=== PATIENT | female | born 1980 | race Caucasian/White ===

== ENCOUNTER → 2021-08-14 16:37 | Outpatient (BNVA) | payer MEDICAID, SELFPAY | PROVIDERS: Visit Provider Registered Nurse Neonatal Intensive Care | DX: J02.9 Acute pharyngitis, unspecified (principal) | CPT/HCPCS: 87880 ==

== ENCOUNTER 2021-12-29 05:45 | Emergency (ER) | payer MEDICAID, SELFPAY ==
[2021-12-29 05:54] VITALS: BP 163/102; PULSE 86; RESP 18; TEMP 36.8; O2SAT 86; O2SAT 96; BMI 21.9
--- NOTE | 2021-12-29 05:55 | ED_ITS ---
HPI - Dental/Oral General: Chief complaint: Dental/Oral Stated complaint: Tooth pain Time Seen by Provider: 12/29/21 05:52 Source: patient Mode of arrival: ambulatory Limitations: no limitations History of Present Illness: 41-year-old female presents emergency room complaining of chest pain for the last 5 days refers the pain to the right mandible. Patient has extremely poor dentition. She had seen a dentist previously and discussed that but did not have any work done. She is now having swelling along the gumline and a sensation of swelling in the jaw no fever. Additionally she is complaining of some mild dysuria and right flank pain that just began over the last day or 2 she related to taking large amounts of ibuprofen. No vomiting or diarrhea. MD Complaint: tooth pain Teeth map: 1. Onset (ago): day(s) (5) Severity: mild Relieving factors: nothing Exacerbating factors: nothing Context: history of dental caries Associated symptoms: Reports ear or mastoid pain and gum swelling; Denies fever(s), odynophagia, sore throat or tongue swelling Treatment prior to arrival: none Review of Systems Const: Denies: fever(s), chills or body aches ENMT: Reports: mouth pain, dental pain and ear or mastoid pain; Denies: throat pain, uvular edema, odynophagia, hoarseness, swelling of lips/tongue or oral sores Card: Denies: chest pain, edema, dyspnea on exertion or orthopnea Resp: Denies: dyspnea, productive cough or non-productive cough GI: Denies: abdominal pain, nausea, vomiting, hematemesis, coffee ground emesis, diarrhea, constipation, bloating, hematochezia or melena : Reports: flank pain, difficulty voiding and dysuria; Denies: urinary frequency or urinary urgency Musc: Denies: neck pain Skin/Breast: Denies: rash or pruritus Neuro: Denies: headache(s) All/Imm: Denies: tongue swelling PFSH ED PFSH: Medical History (Updated 12/29/21 @ 07:48 by Jhonathan Purcell DO) No significant past medical history Surgical History (Updated 12/29/21 @ 06:04 by Jhonathan Purcell DO) No significant past surgical history Social History (Updated 08/14/21 @ 16:35 by Myron Vest, INTERNAL REVENUE AGENT) Smoking and tobacco status: never smoked Alcohol intake: never Physical Exam Const: COMMON NORMALS: no acute distress GENERAL APPEARANCE: cooperative and comfortable ORIENTATION/CONSCIOUSNESS: Yes awake, Yes oriented to person, Yes oriented to place and Yes oriented to time HENMT: COMMON NORMALS: normocephalic, atraumatic, hearing grossly normal bilaterally, external ears normal, EAC's normal, TM's normal bilaterally, Normal nasal mucous membranes and turbinates present and moist oral mucous membranes HEAD & SCALP: normocephalic and atraumatic NOSE: Normal nasal mucous membr anes and turbinates present EXTERNAL EAR: Yes external ears normal EXTERNAL AUDITORY CANAL: EAC's normal TYMPANIC MEMBRANE: TM's normal bilaterally THROAT: no uvular edema OTHER: Extremely poor dentition with multiple eroded molars to the gumline. The second molar on the right mandible is eroded and inflamed there is scant drainage from the molar as well. Neck/C-Spine: COMMON NORMALS: full ROM, no lymphadenopathy, supple and no JVD Lymph: LYMPHATIC: no lymphadenopathy noted and no lymphedema noted Resp: COMMON NORMALS: normal respiratory effort, No retractions, No use of a ccessory muscles and clear to auscultation bilaterally AUSCULTATION: clear to auscultation bilaterally Cardio: COMMON NORMALS: no JVD, regular rate, regular rhythm and No murmurs present (Cardio) RATE: regular rate RHYTHM: regular rhythm GI: COMMON NORMALS: Soft to palpation and No hepatosplenomegaly present AUSCULTATION: Yes normoactive bowel sounds PALPATION: Yes Soft to palpation, No Tenderness to palpation present (GI), No Guarding due to palpation present (GI) and Yes No hepatosplenomegaly present Extremity: COMMON NORMALS: normal to inspection, capillary refill normal, no clubbing, cyanosis or edema, no calf tenderness and no pedal edema Neuro: SENSORIUM/ORIENTATION: Yes oriented to person, Yes oriented to place and Yes oriented to time Skin: COMMON NORMALS: no rashes or lesions noted GENERAL SKIN EXAM: no rashes or lesions noted Course Vital Signs: Vital signs: Vital Signs Temperature 98.3 F 12/29/21 05:54 Pulse Rate 87 12/29/21 07:56 Respiratory Rate 16 12/29/21 07:56 Blood Pressure 137/98 12/29/21 07:56 Pulse Oximetry 98 12/29/21 07:56 MDM - Dental/Oral Medical Decision Making UA negative. Given her description of the back pain it sounds more musculoskeletal. Worsened by movement. She is not having difficulty speech or swallowing at this time is no swelling in the submandibular space we will go and discharge her home on Augmentin and encouraged to follow-up with dentist. Medical Records I reviewed the patient's medical records. Lab Data I reviewed the patient's lab results. : 12/29/21 06:15 12/29/21 06:15 Laboratory Results WBC 8.7 10^3/uL (4.0-10.0) 12/29/21 06:15 RBC 4.11 10^6/uL (4.1-5.3) 12/29/21 06:15 Hgb 12.0 g/dL (11.5-15.3) 12/29/21 06:15 Hct 36.9 % (37.0-47.0) L 12/29/21 06:15 MCV 89.8 fl (81-99) 12/29/21 06:15 MCH 29.2 pg (28.0-34.0) 12/29/21 06:15 MCHC 32.5 g/dL (30.0-36.0) 12/29/21 06:15 RDW 12.6 % (12.1-15.1) 12/29/21 06:15 Plt Count 331 10^3/cmm (130-400) 12/29/21 06:15 MPV 9.2 fL (7.4-10.4) 12/29/21 06:15 Neut % (Auto) 61.4 % 12/29/21 06:15 Lymph % (Auto) 26.5 % 12/29/21 06:15 Snyder % (Auto) 8.5 % 12/29/21 06:15 Eos % (Auto) 2.6 % 12/29/21 06:15 Baso % (Auto) 0.7 % 12/29/21 06:15 Neut # (Auto) 5.32 10^3/uL (1.8-7.7) 12/29/21 06:15 Lymph # (Auto) 2.3 10^3/uL (0.8-4.8) 12/29/21 06:15 Snyder # (Auto) 0.7 10^3/uL (0.2-0.9) 12/29/21 06:15 Eos # (Auto) 0.2 10^3/uL (0.0-0.8) 12/29/21 06:15 Baso # (Auto) 0.1 10^3/uL (0.0-0.1) 12/29/21 06:15 Nucleated RBC % (auto) 0 % 12/29/21 06:15 Nucleated RBCs # 0.0 /100WBC 12/29/21 06:15 Sodium 137 mmol/L (136-145) 12/29/21 06:15 Potassium 3.6 mmol/L (3.5-5.1) 12/29/21 06:15 Chloride 103 mmol/L (98-107) 12/29/21 06:15 Carbon Dioxide 26 mmol/L (22-29) 12/29/21 06:15 Anion Gap 11.6 (5-19) 12/29/21 06:15 BUN 11 mg/dL (6-20) 12/29/21 06:15 Creatinine 0.6 mg/dL (0.5-0.9) 12/29/21 06:15 GFR Calculation 111.3 mL/min (90-130) 12/29/21 06:15 Glucose 98 mg/dL (65-115) 12/29/21 06:15 Calculated Osmolality 283 mOsm/kg (285-295) L 12/29/21 06:15 Calcium 9.1 mg/dL (8.5-10.5) 12/29/21 06:15 Urine Color Yellow (Yellow) 12/29/21 07:04 Urine Appearance Hazy (CLEAR) A 12/29/21 07:04 Urine pH 7 (5-7) 12/29/21 07:04 Ur Specific [place] 1.010 (1.005-1.030) 12/29/21 07:04 Urine Protein Neg (Negative) 12/29/21 07:04 Urine Glucose (UA) Norm (Normal) 12/29/21 07:04 Urine Ketones Negative (Negative) 12/29/21 07:04 Urine Blood Neg (Negative) 12/29/21 07:04 Urine Nitrate Negative (Negative) 12/29/21 07:04 Urine Bilirubin Neg (Negative) 12/29/21 07:04 Urine Urobilinogen Norm mg/dL (Negative) 12/29/21 07:04 Ur Leukocyte Esterase Negative (Negative) 12/29/21 07:04 Urine RBC 0-4 /hpf (0-2) H 12/29/21 07:04 Urine WBC 0-4 /hpf (0-5) H 12/29/21 07:04 Ur Squamous Epith Cells 25-40 /hpf (0-5) H 12/29/21 07:04 Amorphous Sediment 1+ /hpf 12/29/21 07:04 Urine Bacteria 1+ /hpf (NONE) H 12/29/21 07:04 Urine Mucus Trace /hpf 12/29/21 07:04 Discharge Plan Discharge Patient Disposition: Home Clinical Impression: Dental abscess, Dental caries, Musculoskeletal back pain Condition: Stable Prescriptions: New amoxicillin-pot clavulanate 875-125 mg tablet 1 tab PO BID Qty: 20 0RF diclofenac sodium 75 mg tablet,delayed release (DR/EC) 75 mg PO Q12H PRN (Reason: pain) Qty: 20 0RF Discontinued amoxicillin 500 mg capsule 500 mg PO BID 10 Days Qty: 20 0RF Discharge Orders: Discharge ED (Routine); Ordered 12/29/21 Ordered By: Jhonathan Purcell Discharge Diet: As Directed Discharge Activity: Increase activity as tolerated Patient Instructions: Opioid Safety Activity Restrictions/Additional Instructions: Follow-up with dentist as soon as you are able. Coding Level of Care Code ED Transitions Rn Care Coordinator for Luz Maria Fwd Exam Comprehensive
[2021-12-29] MEDS: ketorolac 30 mg/mL INJ IM (06:17)
[2021-12-29 06:24] LABS: Basophils # 0.1 10^3/uL (0.0-0.1); Basophils % 0.7 %; Eosinophils # 0.2 10^3/uL (0.0-0.8); Eosinophils % 2.6 %; Hematocrit 36.9 % (37.0-47.0); Lymphocytes # 2.3 10^3/uL (0.8-4.8); Lymphocytes % 26.5 %; Mean Corpuscular HGB Conc 32.5 g/dL (30.0-36.0); Mean Corpuscular Hemoglobin 29.2 pg (28.0-34.0); Mean Corpuscular Volume 89.8 fl (81-99); Mean Platelet Volume 9.2 fL (7.4-10.4); Monocytes # 0.7 10^3/uL (0.2-0.9); Monocytes % 8.5 %; Neutrophils # 5.32 10^3/uL (1.8-7.7); Neutrophils % 61.4 %; Nucleated Red Blood Cells % 0 %; Platelet Count 331 10^3/cmm (130-400); Red Blood Count 4.11 10^6/uL (4.1-5.3); Red Cell Distribution Width 12.6 % (12.1-15.1); White Blood Count 8.7 10^3/uL (4.0-10.0)
[2021-12-29 06:30] VITALS: BP 147/116; PULSE 84; RESP 20; O2SAT 100
[2021-12-29 06:45] LABS: Anion Gap 11.6 (5-19); Blood Urea Nitrogen 11 mg/dL (6-20); Calcium 9.1 mg/dL (8.5-10.5); Carbon Dioxide 26 mmol/L (22-29); Chloride 103 mmol/L (98-107); Glomerular Filtration Rate 111.3 mL/min (90-130); Glucose 98 mg/dL (65-115); Osmolality Calculated 283 mOsm/kg (285-295); Potassium 3.6 mmol/L (3.5-5.1); Sodium 137 mmol/L (136-145)
[2021-12-29 07:36] LABS: Add Urine Microscopic? YES; Bilirubin Urine Neg (Negative); Blood Urine Neg (Negative); Glucose Urine UA Norm (Normal); Ketones Urine Negative (Negative); Leukocyte Esterase Urine Negative (Negative); Nitrate Urine Negative (Negative); Protein Urine Neg (Negative); Urine Appearance Hazy (CLEAR); Urine Color Yellow (Yellow); Urobilinogen Urine Norm (Negative); pH Urine 7 (5-7)
[2021-12-29 07:41] LABS: RBC Urine 0-4 /hpf (0-2); WBC Urine 0-4 /hpf (0-5)
[2021-12-29 07:42] LABS: Amorphous Sediment Urine 1+ /hpf; Bacteria Urine 1+ /hpf; Mucus Urine TRACE /hpf; Squamous Epithelial Cell Urine 25-40 /hpf (0-5)
[2021-12-29 07:43] LABS: Add Urine Culture? No
[2021-12-29 07:56] VITALS: BP 137/98; PULSE 87; RESP 16; O2SAT 98
== END 2021-12-29 07:59 | disposition home or self-care (01) ==
PROVIDERS: Emergency Provider Family Medicine
DX: K04.7 Periapical abscess without sinus (principal); K02.9 Dental caries, unspecified; M54.9 Dorsalgia, unspecified
CPT/HCPCS: 80048; 81001; 85025; 96372; 99283; J1885

== ENCOUNTER 2022-09-23 10:32 | Emergency (ER) | payer MEDICAID, SELFPAY ==
[2022-09-23 10:39] VITALS: BP 156/88; PULSE 110; RESP 16; TEMP 36.7; O2SAT 100
--- NOTE | 2022-09-23 11:08 | W.ED.DENTAL ---
HPI - Dental/Oral General: Chief complaint: Dental/Oral Stated complaint: Tooth abscess Time Seen by Provider: 09/23/22 10:35 History of Present Illness: Patient is a 42-year-old female comes to the ED with dental pain. She was seen here for dental pain back on December 29, 2021. Symptoms started yesterday. She endorses having 10 out of 10 dental pain is located in the right lower back molars. This morning she woke up and she had significant swelling in the right mandibular region. Denies any trouble breathing or airway obstruction. She is able to swallow p.o. food fluids and meds but does report some discomfort when she does swallow. She is in the process of getting an appointment set up with a dentist for follow-up. Associated symptoms: Denies fever(s) or odynophagia Review of Systems Const: Denies: fever(s), chills or fatigue Eyes: Denies: change in vision or eye discomfort ENMT: Reports: dental pain; Denies: throat pain, odynophagia, nasal discharge or nasal congestion Card: Denies: chest pain, palpitations, edema, swelling of feet/ankles, dyspnea on exertion or orthopnea Resp: Denies: dyspnea, productive cough or non-productive cough GI: Denies: abdominal pain, nausea, vomiting, diarrhea, constipation or hematochezia : Denies: flank pain, dysuria or hematuria Musc: Denies: neck pain, back pain or extremity swelling Skin/Breast: Denies: rash or new lesions Neuro: Denies: headache(s), numbness in extremities or weakness in extremities REPLACED BY [facility] ED PFSH: Medical History No significant past medical history Surgical History No significant past surgical history Social History Smoking and tobacco status: never smoked Alcohol intake: never Physical Exam Const: COMMON NORMALS: no acute distress, patient oriented x3 and alert GENERAL APPEARANCE: cooperative HENMT: COMMON NORMALS: normocephalic HEAD & SCALP: normocephalic MOUTH: Normal oral and palatal mucosa present TEETH & GINGIVA: Yes abnormal tooth and associated gingiva lower right second molar tender, with associated gingival edema and other (Tensive dental caries and tooth decay), Yes caries and Yes poor dentition THROAT: posterior oropharynx normal and uvula midline Neck/C-Spine: COMMON NORMALS: supple GENERAL: Yes normal visual inspection Resp: COMMON NORMALS: normal respiratory effort, No retractions, No use of accessory muscles and clear to auscultation bilaterally AUSCULTATION: clear to auscultation bilaterally Cardio: COMMON NORMALS: regular rate, regular rhythm, S1 normal heart sound present, S2 normal heart sound present, No gallops present (Cardio), No clicks present (Cardio), No murmurs present (Cardio) and Peripheral pulses 2+ throughout RATE: regular rate RHYTHM: regular rhythm HEART SOUNDS: S1 normal heart sound present and S2 normal heart sound present PERIPHERAL PULSES: Peripheral pulses 2+ throughout GI: COMMON NORMALS: Normal to inspection, nondistended, normoactive bowel sounds present, Soft to palpation, non-tender and no masses PALPATION: Yes Soft to palpation : COMMON NORMALS: Yes no CVA tenderness BLADDER/KIDNEY EXAM: Yes no CVA tenderness Back/Pelvis: COMMON NORMALS: no CVA tenderness Extremity: COMMON NORMALS: normal to inspection Neuro: COMMON NORMALS: patient oriented x3 SENSORIUM/ORIENTATION: Yes alert GAIT: Yes Normal gait present Skin: GENERAL SKIN EXAM: dry skin Course Vital Signs: Vital signs: Vital Signs Temperature 98.2 F 09/23/22 11:37 Pulse Rate 100 09/23/22 11:37 Respiratory Rate 18 09/23/22 11:37 Blood Pressure 156/88 09/23/22 11:37 Pulse Oximetry 100 09/23/22 11:37 Oxygen Delivery Ok thod 09/23/22 10:39 [facility] - Dental/Oral Medical Decision Making Patient is a 42-year-old female comes to the ED with dental pain. She was seen here for dental pain back on December 29, 2021. Symptoms started yesterday. She endorses having 10 out of 10 dental pain is located in the right lower back molars. This morning she woke up and she had significant swelling in the right mandibular region. Denies any trouble breathing or airway obstruction. Vitals are stable. Exam of patient shows poor dentition and she has extensive dental caries and tooth decay in her bottom right molars with some surrounding gingival edema. She also has some facial swelling of the right mandibular region. She was given a dose of Toradol, Rocephin and Solu-Medrol here in the ED. She was diagnosed with dental abscess and discharged home with a prescription for diclofenac, clindamycin and steroid. Return to ED precautions given. Follow-up with dentist as soon as possible to have dental pain further evaluated and treated. Patient understood and agreed with plan. Discharge Plan Discharge Patient Disposition: Home Clinical Impression: Dental abscess Condition: Stable Prescriptions: New clindamycin HCl 150 mg capsule 300 mg PO QID 7 Days Qty: 56 0RF diclofenac sodium 75 mg tablet,delayed release (DR/EC) 75 mg PO BID PRN (Reason: pain) Qty: 20 0RF prednisone 20 mg tablet 20 mg PO BID 3 Days Qty: 6 0RF No Action amoxicillin-pot clavulanate 875-125 mg tablet 1 tab PO BID Qty: 20 0RF diclofenac sodium 75 mg tablet,delayed release (DR/EC) 75 mg PO Q12H PRN (Reason: pain) Qty: 20 0RF Discharge Orders: Discharge ED (Routine); Ordered 09/23/22 Ordered By: Vladimir Duong Discharge Diet: Regular Discharge Activity: Increase activity as tolerated Patient Instructions: Dental Abscess (ED) Activity Restrictions/Additional Instructions: Follow-up with dentist as soon as possible for further evaluation and treatment of dental pain. Take medications as prescribed. You can start taking your prescribed antibiotic and steroid tomorrow since you received doses today in the emergency department. Return to the emergency department immediately if you have any worsening symptoms or any trouble breathing. Please read and understand discharge instructions. Thank you for choosing [facility] for your healthcare needs today. Please realize this is an emergency room and that we are providing you with a medical screening exam and this may not be complete and all inclusive of all the testing and or work up that you may need to determine your ailment or severity of your illness. It is very important that you follow up as instructed or that you return to the Emergency Department should you have concerns or if your condition changes or worsens in any way. Coding Level of Care Code ED Spike Machine Heater for Luz Maria Rodriguez Exam Comprehensive
[2022-09-23] MEDS: ketorolac 60 mg/2 mL INJ IM (11:13)
[2022-09-23] MEDS: cefTRIAXone 1,000 MG in water for injection-sterile 2.1 ML 2 MG IM (11:18)
[2022-09-23 11:37] VITALS: BP 156/88; PULSE 100; RESP 18; TEMP 36.8; O2SAT 100
== END 2022-09-23 11:47 | disposition home or self-care (01) ==
PROVIDERS: Emergency Provider Physician Assistant
DX: K04.7 Periapical abscess without sinus (principal)
CPT/HCPCS: 96372; 99284; J0696; J1885; J2930

== ENCOUNTER 2022-10-10 08:15 | Outpatient (CLI) | payer MEDICAID, SELFPAY ==
--- NOTE | 2022-10-10 08:21 | MM_ITS ---
WS: [id number] DIAGNOSTIC BILATERAL DIGITAL BREAST TOMOSYNTHESIS MAMMOGRAPHY WITH CAD Bilateral breast ultrasound, limited HISTORY: LT BREAST LUMP COMPARISON: 11/18/2013, bilateral breast ultrasound 11/18/2013 TECHNIQUE: Bilateral craniocaudad, mediolateral oblique, and mediolateral views are submitted with to mosynthesis and SM. Spot compression bilateral MLO and cc projections. Computer aided detection utili zed. Breast composition: The breasts are extremely dense, which lowers the sensitivity of mammography. Nod ular asymmetry in the upper outer quadrant of the RIGHT breast near 9-10 o'clock. Partially obscured borders of the nodules in the central breast. Palpable marker LEFT breast near 3:00. Similar location to the prior marker placed on 11/18/2013. There is no underlying mass identified. No nipple retractio n. Bilateral breast ultrasound, limited. RIGHT breast: Along the 9:00 axis one cm from the nipple is a hypoechoic mass which is probably a l ymph node or fibroadenoma measuring 6 x 6 x 3 mm. No additional abnormality in the RIGHT breast. LEFT breast: At 2:00 hypoechoic well-circumscribed nodule measuring 5 x 5 x 3 mm, 2 cm from the nippl e. Additional hypoechoic mass at 2:00 near the subareolar measures 13 x 13 x 6 mm. Probably a fibroad enoma. MM/[place] [id number] IMPRESSION: BI-RADS: 3-Probably Benign FOLLOW UP: 6 Month Follow-up 1. Extremely dense breasts are difficult to evaluate by imaging. 2. Hypoechoic mass LEFT breast at 2:00. Statistically this is most likely a fi broadenoma. Recommend 6 month LEFT breast ultrasound follow-up. Biopsy can be p erformed if patient desires. 3. There are additional small nodules which are probably lymph nodes are small er fibroadenomas.
== END 2022-10-10 08:16 | disposition home or self-care (01) ==
LOC: RAD 08:17
PROVIDERS: Visit Provider Family Medicine
DX: N63.0 Unspecified lump in unspecified breast (principal)
CPT/HCPCS: 76642; 77062; G0279

== ENCOUNTER 2023-05-22 09:16 | Outpatient (CLI) | payer MEDICAID, SELFPAY ==
--- NOTE | 2023-05-22 09:53 | US_ITS ---
WS: [id number] ULTRASOUND LEFT BREAST HISTORY: 6MFU COMPARISON: 10/10/2022 TECHNIQUE: 2-D and Doppler. Hypoechoic ovoid mass in the LEFT breast at 2:00 measures 1.6 x 0.5 x 1.6 cm. Very similar in size an d appearance as compared to 10/10/2022. No increase in size. There is an additional cyst at 2:00, 2 cm from the nipple measuring 0.4 x 0.2 x 0.4 cm IMPRESSION: US/US breast LT limited* [id number] BI-RADS: 3-Probably Benign FOLLOW-UP: 6 Month Follow-up Patient to return for annual mammogram in October 2023. Recommend additional L EFT breast ultrasound at 2:00 to demonstrate continued long-term stability of t his mass.
== END 2023-05-22 09:17 | disposition home or self-care (01) ==
PROVIDERS: PCP Family Medicine; Visit Provider Family Medicine
DX: N63.22 Unspecified lump in the left breast, upper inner quadrant (principal)
CPT/HCPCS: 76642

== ENCOUNTER 2023-12-18 10:12 | Outpatient (CLI) | payer BC, MEDICAID, SELFPAY ==
--- NOTE | 2023-12-18 10:20 | MM_ITS ---
WS: [id number] DIAGNOSTIC BILATERAL DIGITAL BREAST TOMOSYNTHESIS MAMMOGRAPHY WITH CAD Bilateral breast ultrasound, limited HISTORY: 6MFU ABNORMAL MAMMO COMPARISON: 05/22/2023, 10/10/2022, 11/18/2013 TECHNIQUE: Bilateral craniocaudad, mediolateral oblique, and mediolateral views are submitted with to mosynthesis and SM. Spot compression LEFT MLO. Computer aided detection utilized. Breast composition: The breasts are extremely dense, which lowers the sensitivity of mammography. Swathi asts are extremely dense. No new nodule or mass. There is an ill-defined asymmetry measuring 7 mm in the medial RIGHT breast below the nipple line which will be evaluated by ultrasound. Nodule in the LE FT breast does not if seen by mammography. There is an asymmetry upper outer quadrant RIGHT breast wh ich will also be evaluated by ultrasound. No suspicious calcifications. No distortion. Bilateral breast ultrasound, limited. RIGHT: 5:00, 7 cm the nipple 5 x 3 x 6 mm hypoechoic nodule. Probably a complex cyst. No interval paty nge since the prior mammograms. There is an additional similar hypoechoic mass at 9:00, 3 cm from the nipple measuring 6 x 3 x 6 mm. LEFT: Hypoechoic mass LEFT breast reidentified. Ovoid mass measuring 1.4 x 0.6 x 1.7 cm is similar si ze to the prior study. May be a small fibroadenoma. No increase in size. There is an additional very tiny cyst at 2:00 with a maximum diameter of 3 mm. IMPRESSION: MM/[place] [id number] BI-RADS: 3-Probably Benign FOLLOW UP: 6 Month Follow-up Bilateral breast ultrasound follow-up in 6 months. Long-term imaging of the ind eterminate but probably benign nodules is recommended.
== END 2023-12-18 10:13 | disposition home or self-care (01) ==
LOC: RAD 10:13
PROVIDERS: PCP Family Medicine; Visit Provider Family Medicine
DX: R92.8 Other abnormal and inconclusive findings on diagnostic imaging of breast (principal)
CPT/HCPCS: 76642; 77062; G0279

== ENCOUNTER → 2024-06-05 16:10 | Outpatient (BNVA) | payer BC, MEDICAID, SELFPAY | PROVIDERS: PCP Family Medicine; Visit Provider Family Medicine | DX: R39.9 Unspecified symptoms and signs involving the genitourinary system (principal) | CPT/HCPCS: 81000 ==

== ENCOUNTER 2024-07-25 07:54 | Outpatient (CLI) | payer BC, MEDICAID, SELFPAY ==
--- NOTE | 2024-07-25 07:58 | US_ITS ---
WS: [id number] ULTRASOUND BILATERAL BREASTs HISTORY: 6-month follow-up bilateral complex cyst. COMPARISON: 12/18/2023 TECHNIQUE: 2-D and Doppler. RIGHT: 5:00 hypoechoic nodule with maximum diameter of 6 mm is unchanged. No change in the 9:00 ovoid mass with a maximum diameter 7 mm. LEFT: Hypoechoic mass at 11:00 may be a lymph node. This is also unchanged. There is a tiny 2:00 hypo echoic nodule with maximum diameter of 4 mm unchanged. US/US breast BI limited* [id number] IMPRESSION: BI-RADS: 2- Benign FOLLOW-UP: See Report Benign appearing hypoechoic masses within each breast. Some of these are cysts and others are hypoechoic with no interval change. Recommend return to annual s creening mammography.
== END 2024-07-25 07:55 | disposition home or self-care (01) ==
LOC: RAD 07:55
PROVIDERS: PCP Family Medicine; Visit Provider Family Medicine
DX: N63.14 Unspecified lump in the right breast, lower inner quadrant (principal); N63.11 Unspecified lump in the right breast, upper outer quadrant; N63.22 Unspecified lump in the left breast, upper inner quadrant
CPT/HCPCS: 76642

== ENCOUNTER 2025-04-28 14:50 | Outpatient (CLI) | payer BC, MEDICAID, SELFPAY ==
--- NOTE | 2025-04-28 14:57 | US_ITS ---
WS: [id number] ULTRASOUND SOFT TISSUES umbilicus. HISTORY: UMBILICAL HERNIA COMPARISON: None available. TECHNIQUE: 2-D and color Doppler imaging is submitted. Ultrasound directed over the umbilical area. On the initial imaging there is a small umbilical hernia containing fat. During Valsalva maneuver there is a loop of GI tract that extends into the hernia sac. No incarceration or strangulation. US/US soft tissue/extremity [id number] IMPRESSION: Small umbilical hernia contains a loop of nonincarcerated small bowel during Va lsalva.
== END 2025-04-28 14:51 | disposition home or self-care (01) ==
PROVIDERS: PCP Family Medicine; Visit Provider Nurse Practitioner Family
DX: K42.9 Umbilical hernia without obstruction or gangrene (principal)
CPT/HCPCS: 76882